=== PATIENT | female | born 1970 | race Caucasian/White ===

== ENCOUNTER → 2016-12-31 | Outpatient (CLI) | payer BC ==
--- NOTE | ~2016-12-31 | US98 ---
[facility] A Service of [facility] & [facility] RADIOLOGY TEXT RESULTS PATIENT: MAHESH DOUGLAS LOCATION: [facility] : 68 UNIT #: [id number] AGE: [address]: KIT HAYNES SEX: F ORDER DR: [id number] [address] [address] [id number] O MR#: [id number] Acc #: [id number] NAME: MAHESH DOUGLAS : 1970 SEX: F STUDY DATE/TIME: 12/31/2016 14:49 UNIT: SG ROOM: STUDY DESCRIPTION: US Pelvic Non-OB Complete Attending Physician: Ruthie Haynes M.D. Referring Physician: Ruthie Haynes M.D. Ordering Physician: Physician Non-Staff Primary Care Physician: Ruthie Haynes M.D. MEDICAL IMAGING REPORT This report is preliminary unless electronic signature is present. EXAM Pelvic ultrasound INDICATION Pelvic and flank pain since December 30, 2016. Patient underwent a CT of the abdomen and pelvis on December 31, 2016 which showed a complex left ovarian cyst. TECHNIQUE Espinal-scale, color Doppler and spectral Doppler waveform analysis was performed through the patient's pelvis. FINDINGS The uterus is surgically absent. Right ovary cannot be seen. Complex structure is seen within the left adnexa. On transabdominal images there appears to be at least a partially cystic structure measuring up to 3.6 x 3.9 x 5.1 cm. An internal echo is identified within it and increased through transmission. It does not however represent a simple cyst. On transvaginal imaging the pullman conductor has labeled a structure as the left ovary. This structure measures up to 5.0 x 3.0 x 4.0 cm and likely corresponds to the lesion seen on recent CT. Ambulatory Nurse did not evaluate the structure on transvaginal images for color Doppler flow. The possibility of left ovarian neoplasm certainly cannot be excluded on the basis of this examination. I would suggest further evaluation with pelvic MRI. IMPRESSION 1. Uterus and right ovary cannot be seen. 2. The study is extremely technically limited due to exam technique. Ambulatory Nurse labels a structure at the left ovary which does not have the normal appearance of a left ovary. It measures up to 5.0 x 3.0 x I 4.0 cm. This likely corresponds to the lesion seen on the CT from December 31. The possibility of ovarian neoplasm cannot be excluded [facility] A Service of [facility] & [facility] RADIOLOGY TEXT RESULTS PATIENT: MAHESH DOUGLAS LOCATION: [facility] : 68 UNIT #: [id number] AGE: [address]: KIT HAYNES SEX: F ORDER DR: on the basis of this examination. I would suggest further evaluation with pelvic MRI. 1. Dictated by... Martha Xavier M.D. THIS IS AN ELECTRONICALLY VERIFIED REPORT Martha Xavier M.D. at 01/02/2017 4:40 PM KENTRELL/dirk TD: 01/01/2017 16:35 JOB #: [id number] MEDICAL IMAGING REPORT Page 1 of 1
== END | disposition home or self-care (01) ==
LOC: SGUS 14:21
DX: R10.2 Pelvic and perineal pain (principal); R19.00 Intra-abdominal and pelvic swelling, mass and lump, unspecified site; E04.2 Nontoxic multinodular goiter; E03.9 Hypothyroidism, unspecified
CPT/HCPCS: 36415; 76830; 76856; 84443

== ENCOUNTER → 2017-03-01 | Outpatient (CLI) | payer BC ==
--- NOTE | ~2017-03-01 | US140 ---
[facility] A Service [facility] RADIOLOGY TEXT RESULTS PATIENT: MAHESH DOUGLAS LOCATION: [facility] : 68 UNIT #: [id number] AGE: [address]: Dann Moses MD SEX: F ORDER DR: [id number] [address] [address] [id number] O MR#: [id number] Acc #: [id number] NAME: MAHESH DOUGLAS : 1970 SEX: F STUDY DATE/TIME: 03/01/2017 16:47 UNIT: [facility] ROOM: STUDY DESCRIPTION: [facility] [place] [facility] Attending Physician: Dann Moses M.D. Referring Physician: Dann Moses M.D. Primary Care Physician: Ruthie Hidalgo M.D. MEDICAL IMAGING REPORT This report is preliminary unless electronic signature is present. EXAM Color Doppler ultrasound examination of the left lower extremity. HISTORY Left calf pain for the past 3 weeks. Recent abdominal surgery. Recent long travels. TECHNIQUE Ultrasound evaluation was performed with dodson-scale, color-flow, and Doppler spectral waveform analysis. TECHNIQUE Venous ultrasound examination of the left lower extremity was performed using grayscale, spectral Doppler and color flow Doppler imaging. FINDINGS The examination is negative. There is no evidence of left lower extremity deep venous thrombus from the groin to the lower calf. Visualized greater saphenous vein is also patent. IMPRESSION Negative examination. No evidence of left lower extremity deep venous thrombosis. Dictated by... Severo Barger M.D. THIS IS AN ELECTRONICALLY VERIFIED REPORT Severo Barger M.D. at 03/02/2017 12:14 PM RLF/tmw [facility] A Service [facility] RADIOLOGY TEXT RESULTS PATIENT: MAHESH DOUGLAS LOCATION: [facility] : 68 UNIT #: [id number] AGE: [address]: Dann Moses MD SEX: F ORDER DR: TD: 03/02/2017 09:20 JOB #: [id number] MEDICAL IMAGING REPORT Page 1 of 1
== END | disposition home or self-care (01) ==
LOC: SRAD 16:33
DX: M79.662 Pain in left lower leg (principal); Z98.890 Other specified postprocedural states
CPT/HCPCS: 93971